=== PATIENT | female | born 1955 | race Caucasian/White ===

== ENCOUNTER → 2020-10-26 | Outpatient (CLI) | payer OTHER ==
--- NOTE | 2020-10-27 09:59 | KCIC ---
CT SCREENING FOR CORONARY ARTERY History: Reason: Cardiovascular screening. Family hx. heart disease-parents and son. / Spl. Instruct ions: / History: Hypertension, bordeline diabetic and hyperlipidemia. Nosmoker. Technique: With retrospective electrocardiogram gating axial reconstructed noncontrast images of the chest at the level of the coronary arteries was performed. Images were post processed on workstation and calcium score calculated using the modified Agatston Janowitz protocol. Exposure: One or more of the following individualized dose reduction techniques were utilized for thi s examination: 1. Automated exposure control 2. Adjustment of the mA and/or kV according to patient size 3. Use of iterative reconstruction technique. Comparison: None Findings: Total coronary calcium score is 0. There is no plaque burden and low cardiovascular disease risk. This is based on the calcium score of 0 of the left main coronary artery, 0 of the left anteri or descending artery, score of 0 of the left circumflex artery and score of 0 of the right coronary a rtery. Noncoronary findings: Scattered linear atelectasis. Bilateral breast implants. Left posterior rib sclerotic lesion measures 2.1 x 0.5 cm (series 4 image 17). IMPRESSION: 1. Low cardiovascular disease risk. Calcium score 0. 2. Left posterior rib sclerotic lesion, may represent benign fibro-osseous lesion. Recommend compari son with prior imaging studies and correlation for history of malignancy. If indicated, recommend fol low-up. Electronically signed by: Felipe Lopez DO (10/27/2020 9:57 AM) [id number]
== END ==
LOC: KCIC CT 14:54
PROVIDERS: ATTEND Physician Assistant Medical
DX: I25.10 Atherosclerotic heart disease of native coronary artery without angina pectoris (principal); I10 Essential (primary) hypertension
CPT/HCPCS: 75571